=== PATIENT | female | born 1940 | race Caucasian/White ===

== ENCOUNTER 2017-05-13 11:41 | Day surgery (SDC) | payer OTHER, BC ==
[2017-05-12 12:19] VITALS: BMI 26.5
[2017-05-13] MEDS ORDERED: PROPOFOL 20 ML ONE ×2 (12:50)
[2017-05-13 14:09] VITALS: TEMP 97.7
[2017-05-13 14:26] VITALS: PULSE 63
[2017-05-13 15:13] VITALS: BP 149/66
--- NOTE | 2017-05-17 15:08 | PATH ---
Surgical Pathology Report Patient Name: JAMEL GOODRICH [facility]. Rec. #: [id number] /Age/Gender: 1940 (Age: 76) / F Account: [id number] Location: U-ENDOSCOPY Taken: 05/13/2017 Received: 05/16/2017 Reported: 05/17/2017 Physicians: Mushtaq Colby M.D. Specimen(s) Received BIOPSY DESCENDING COLON POLYP Clinical History Colon polyp, diverticulosis Diverticulosis, redundant colon, colon polyp Final Diagnosis COLON, DESCENDING, BIOPSY: COLONIC MUCOSA WITH REACTIVE LYMPHOID AGGREGATE WITHIN LAMINA PROPRIA. NO ACTIVE INFLAMMATION OR ADENOMATOUS CHANGES IDENTIFIED. Comment: The findings may indicate some form of antigenic stimulation to the GI tract. Electronically Signed Efrain Shah M.D. Gross Description Received in formalin, labeled "biopsy descending colon polyp" is a cespedes, irregular portion of soft tissue measuring 0.4 cm. in greatest dimension. The specimen is submitted in toto in one cassette. 05/16/201705/16/2017
== END 2017-05-13 15:13 | disposition home or self-care (01) ==
LOC: JASU-ENDO 11:41
PROVIDERS: ATTEND Internal Medicine Gastroenterology
PROC: 0DBN8ZX Excision of Sigmoid Colon, Via Natural or Artificial Opening Endoscopic, Diagnostic (ICD-10-PCS; principal; 2017-05-13 12:45)
DX: Z12.11 Encounter for screening for malignant neoplasm of colon (principal); Z86.010 Personal history of colon polyps; K63.89 Other specified diseases of intestine; K57.30 Diverticulosis of large intestine without perforation or abscess without bleeding; K64.8 Other hemorrhoids; D12.5 Benign neoplasm of sigmoid colon
CPT/HCPCS: 88305-TC

== ENCOUNTER → 2017-07-25 | Day surgery (SDC) | payer OTHER, BC ==
--- NOTE | 2017-07-26 18:56 | PATH ---
Surgical Pathology Report Patient Name: JAMEL GOODRICH [facility]. Rec. #: [id number] /Age/Gender: 1940 (Age: 77) / F Account: [id number] Location: [facility]OLOGY [facility] Taken: 07/25/2017 Received: 07/25/2017 Reported: 07/26/2017 Physicians: Mirlande Hylton M.D. Specimen(s) Received LEFT BREAST 0.47 CM LESION Clinical History Nonpalpable lesion Ultrasound findings: Suspicious Final Diagnosis BREAST, LEFT, 1:00, CORE BIOPSY: BENIGN FIBROADIPOSE TISSUE WITH HISTIOCYTIC PROLIFERATION AND FOCAL FIBROSIS SUGGESTIVE OF FAT NECROSIS. Comment: Immunohistochemical stains performed and interpreted at [facility] show cytokeratin AE1/3 and S100 are negative. Electronically Signed Ana Hastings M.D. Gross Description Received in formalin labeled "left 1:00," is a 0.7 x 0.5 x 0.1 cm aggregate of multiple cespedes-yellow, irregular to cylindrical portions of fibroadipose tissue. The formalin is filtered and the specimen is entirely submitted in one cassette. Time to formalin fixation: Less than one minute Total formalin fixation time: Approximately 7 hours. 07/25/201707/25/2017
== END | disposition home or self-care (01) ==
LOC: JRADUS-SUR 10:15
PROVIDERS: ATTEND Obstetrics & Gynecology
PROC: 0HBU3ZX Excision of Left Breast, Percutaneous Approach, Diagnostic (ICD-10-PCS; principal; 2017-07-25)
DX: N60.22 Fibroadenosis of left breast (principal)
CPT/HCPCS: 19083; 87899; 88307-TC; 88341-TC; 88342-TC; A4648

== ENCOUNTER 2021-04-25 00:33 | Emergency (ER) | payer OTHER, BC ==
[2021-04-25 00:46] VITALS: BP 180/88; PULSE 72; TEMP 98.3; BMI 21.9
[2021-04-25] MEDS ORDERED: ACETAMINOPHEN 325 MG TABLET (FP) PO ONE (01:28)
[2021-04-25] MEDS ORDERED: ACETAMINOPHEN 325 MG TABLET (FP) ONE (01:42)
[2021-04-25] MEDS ORDERED: DIPHTH,PERTUSS(ACELL),TET 0.5 ML DISP.SYRIN IM ONE ×2 (03:02→03:09)
[2021-04-25] MEDS ORDERED: IBUPROFEN 600 MG TABLET (FP) PO ONE ×2 (03:04→03:08)
== END 2021-04-25 03:18 | disposition home or self-care (01) ==
LOC: JER 00:33
PROC: 0CQ0XZZ Repair Upper Lip, External Approach (ICD-10-PCS; principal; 2021-04-25)
PROC: 3E0234Z Introduction of Serum, Toxoid and Vaccine into Muscle, Percutaneous Approach (ICD-10-PCS; 2021-04-25)
DX: S00.83XA Contusion of other part of head, initial encounter (principal); S01.511A Laceration without foreign body of lip, initial encounter; W01.0XXA Fall on same level from slipping, tripping and stumbling without subsequent striking against object, initial encounter; Y93.01 Activity, walking, marching and hiking
CPT/HCPCS: 12011; 70450-TC; 70486-TC; 72125-TC; 90471; 90715; 99285-25

== ENCOUNTER 2024-12-25 11:27 | Inpatient (IN) | payer OTHER, BC ==
[2024-12-25] MEDS ORDERED: methylPREDNISolone NA SUCC 125 MG/2 ML VIAL ONE (12:13)
[2024-12-25] MEDS: methylPREDNISolone NA SUCC 125 MG/2 ML VIAL IVPUSH ONE (12:56)
[2024-12-25 13:05] LABS: ABSOLUTE IMMATURE GRANULOCYTES 0.05 x10^3/uL (0.0-0.031); BASOPHILS # 0.06 x10^3/uL (0.01-0.08); EOSINOPHIL % 1.1 % (0.7-5.8); EOSINOPHILS # 0.15 x10^3/uL (0.04-0.36); HEMATOCRIT 35.9 % (34.1-44.9); HEMOGLOBIN 11.5 g/dL (11.2-15.7); MEAN CELL VOLUME 96.5 fl (79.4-94.8); MEAN PLT VOLUME 11.7 fl (9.4-12.3); MONOCYTE # 1.34 x10^3/uL (0.24-0.86); MONOCYTE % 9.9 % (4.7-12.5); PLATELET COUNT 164 x10^3/uL (182-369); RDW 13.2 % (12.5-17.0)
[2024-12-25 13:12] LABS: INR 1.05 (0.83-1.09); PROTHROMBIN TIME (PATIENT) 11.4 SEC (9.7-13.0)
[2024-12-25 13:15] LABS: ACTIVATED PTT 24.8 SECONDS (25.2-36.5)
[2024-12-25 13:29] LABS: POTASSIUM 4.1 mmol/L (3.5-5.1)
[2024-12-25 13:32] LABS: CALCIUM 9.3 mg/dL (8.5-10.1); MAGNESIUM 2.3 mg/dL (1.8-2.4)
[2024-12-25 13:33] LABS: ALBUMIN 3.7 g/dl (3.4-5.0)
[2024-12-25 13:36] LABS: CREATININE 0.7 mg/dL (0.55-1.3)
[2024-12-25 13:37] LABS: TOT PROT 7.1 g/dl (6.4-8.2)
[2024-12-25 13:38] LABS: BILIRUBIN,TOTAL 0.8 mg/dL (0.2-1)
[2024-12-25] MEDS ORDERED: ERYTHROMYCIN 0.5% OPHTHALMIC OINTMENT 3.5 GM TUBE ONE (16:08)
[2024-12-25] MEDS: ERYTHROMYCIN 0.5% OPHTHALMIC OINTMENT 3.5 GM TUBE OU STA (16:16)
[2024-12-25] MEDS ORDERED: ARTIFICIAL TEARS OPHTHALMIC DROPS OU PRN (17:15)
[2024-12-25 17:26] LABS: EPI CELLS 6 /uL (0-25.1); HYALINE CASTS 0 /uL (0-3.1); URINE APPEARANCE CLEAR; URINE BACTERIA 26 /uL (0-1359); URINE BILIRUBIN NEGATIVE (NEGATIVE); URINE COLOR YELLOW; URINE GLUCOSE (UA) 1+ (NEGATIVE); URINE KETONE 2+ (NEGATIVE); URINE LEUK ESTERASE NEGATIVE (NEGATIVE); URINE NITRITE NEGATIVE (NEGATIVE); URINE PROTEIN NEGATIVE (NEGATIVE); URINE RBC 276 /uL (0-23.9); URINE UROBILINOGEN 0.2 mg/dL (0.2-1.0); URINE WBC 13 /uL (0-25.8)
[2024-12-25 18:15] VITALS: BMI 26.7
[2024-12-25] MEDS: ROSUVASTATIN CA 10 MG TABLET PO SCH (21:10)
[2024-12-25] MEDS: LATANOPROST 0.005% OPHTH SOLN 2.5ML BOTTLE OU SCH (21:36)
[2024-12-26] MEDS ORDERED: MELATONIN 5 MG TABLETS PO PRN (00:16)
[2024-12-26 08:07] LABS: ABSOLUTE IMMATURE GRANULOCYTES 0.05 x10^3/uL (0.0-0.031); BASOPHILS # 0.02 x10^3/uL (0.01-0.08); HEMATOCRIT 34.1 % (34.1-44.9); HEMOGLOBIN 10.8 g/dL (11.2-15.7); MCHC 31.7 g/dl (32.2-35.5); MEAN CELL VOLUME 96.1 fl (79.4-94.8); MEAN PLT VOLUME 11.6 fl (9.4-12.3); MONOCYTE # 0.85 x10^3/uL (0.24-0.86); PLATELET COUNT 164 x10^3/uL (182-369)
[2024-12-26 08:36] LABS: POTASSIUM 3.8 mmol/L (3.5-5.1)
[2024-12-26 08:37] LABS: BLOOD UREA NITROGEN 15.9 mg/dL (7-18)
[2024-12-26 08:38] LABS: CALCIUM 8.8 mg/dL (8.5-10.1)
[2024-12-26 08:40] LABS: CREATININE 0.5 mg/dL (0.55-1.3)
[2024-12-26] MEDS ORDERED: PATIENT'S OWN MEDICATION (NON-FORMULARY) (Raloxifene Hcl [Raloxifene Hcl] 60 MG Tablet) PO SCH (10:00)
[2024-12-26] MEDS: PANTOPRAZOLE 40 MG TABLET PO SCH (10:40)
[2024-12-26] MEDS: TRIAMCINOLONE ACET 0.5% CREAM 15 GM TUBE TP SCH (10:40)
[2024-12-26] MEDS: methylPREDNISolone NA SUCC 40 MG/1 ML VIAL IVPUSH SCH (10:41)
[2024-12-26] MEDS: INSULIN ASPART SLIDING SCALE (NOVOLOG) 1 VIAL SQ SCH (17:40)
[2024-12-26 22:15] VITALS: RESP 18
[2024-12-27 10:22] VITALS: BP 143/73; PULSE 67; TEMP 97.3
== END 2024-12-27 13:52 | disposition home or self-care (01) | DRG 607 ==
LOC: JER 11:27 → UNDOADMOB 15:47 → INTOOBSV 15:47 → JERBED 15:47 → J7W 17:52 → OBSVTOIN 12-26 09:59
PROVIDERS: ADMIT Internal Medicine; ATTEND Family Medicine
DX: L27.0 Generalized skin eruption due to drugs and medicaments taken internally (principal); T44.1X5A Adverse effect of other parasympathomimetics [cholinergics], initial encounter; I10 Essential (primary) hypertension; E78.5 Hyperlipidemia, unspecified; H10.89 Other conjunctivitis; G30.9 Alzheimer's disease, unspecified; F02.80 Dementia in other diseases classified elsewhere, unspecified severity, without behavioral disturbance, psychotic disturbance, mood disturbance, and anxiety
CPT/HCPCS: 0241U-QW; 36415; 71045-TC-FY; 80048; 80053; 81003; 82550; 82962; 83735; 84484; 85025; 85610; 85651; 85730; 86140; 86850; 86900; 86901; 87086; 93005; 93010; 97116-GP; 99285-25; G0378